=== PATIENT | male | born 1995 | race Two or more races ===

== ENCOUNTER 2021-09-15 11:27 | Outpatient (CLI) | payer OTHER | END 2021-09-15 11:28 | disposition home or self-care (01) | LOC: LAB 11:27 | PROVIDERS: ATTEND Obstetrics & Gynecology | DX: Z20.828 Contact with and (suspected) exposure to other viral communicable diseases (principal); Z20.818 Contact with and (suspected) exposure to other bacterial communicable diseases ==

== ENCOUNTER 2022-01-30 15:37 | Emergency (ER) | payer OTHER ==
[~2022-01-30] VITALS: Ht 167.6 cm; Wt 86.2 kg
== END 2022-01-30 18:14 | disposition home or self-care (01) ==
LOC: ER 15:37
DX: S01.81XA Laceration without foreign body of other part of head, initial encounter (principal); V89.2XXA Person injured in unspecified motor-vehicle accident, traffic, initial encounter; Y93.I9 Activity, other involving external motion; Y92.9 Unspecified place or not applicable; Y99.9 Unspecified external cause status; Z91.013 Allergy to seafood